=== PATIENT | female | born 1960 | race Caucasian/White ===

== ENCOUNTER 2019-05-14 12:24 | Emergency (ER) | payer MEDICAID ==
[~2019-05-14] VITALS: Ht 157.5 cm; Wt 72.6 kg
[~2019-05-14 12:24] MED LIST: DIAZ10 PO; GABA300 PO; IBUP600 PO; METH10 PO
[2019-05-14] MEDS ORDERED: HYDR1TAB94 PO (13:54)
[2019-05-14] MEDS ORDERED: IBUP800 PO (13:54)
== END 2019-05-14 14:46 | disposition home or self-care (01) ==
LOC: ER 12:24
DX: S62.314A Displaced fracture of base of fourth metacarpal bone, right hand, initial encounter for closed fracture (principal); S62.312A Displaced fracture of base of third metacarpal bone, right hand, initial encounter for closed fracture; S63.274A Dislocation of unspecified interphalangeal joint of right ring finger, initial encounter; W01.0XXA Fall on same level from slipping, tripping and stumbling without subsequent striking against object, initial encounter; Z88.8 Allergy status to other drugs, medicaments and biological substances; Z88.6 Allergy status to analgesic agent; Z79.899 Other long term (current) drug therapy; F17.210 Nicotine dependence, cigarettes, uncomplicated
CPT/HCPCS: 26770; 73110; 73130; 73140; 96372-59; 99283-25; J3010

== ENCOUNTER → 2019-07-04 | Outpatient (CLI) | payer SELFPAY ==
[~2019-07-04] MED LIST changes: +HYDR1TAB94 PO; +IBUP800 PO
== END | disposition home or self-care (01) ==
LOC: LAB 18:50 → LAB SHORT 18:50
DX: J02.9 Acute pharyngitis, unspecified (principal)
CPT/HCPCS: 87081

== ENCOUNTER → 2019-12-21 | Outpatient (CLI) | payer SELFPAY | LOC: LAB 17:57 → LAB SHORT 17:57 | DX: L08.9 Local infection of the skin and subcutaneous tissue, unspecified (principal) | CPT/HCPCS: 87070; 87205 ==

== ENCOUNTER → 2021-09-27 | Outpatient (CLI) | payer SELFPAY | LOC: PLD 11:37 → LAB SHORT 11:37 → LAB FUT 08-26 16:00 | DX: F45.8 Other somatoform disorders (principal) | CPT/HCPCS: 87177; 87209 ==

== ENCOUNTER 2025-01-12 17:17 | Emergency (ER) | payer OTHER ==
[~2025-01-12] VITALS: Ht 157.5 cm; Wt 63.5 kg
[2025-01-12 18:03] VITALS: BP 119/75
== END 2025-01-12 19:19 | disposition left against medical advice (07) ==
LOC: ER 17:17
DX: K62.89 Other specified diseases of anus and rectum (principal); K59.00 Constipation, unspecified; Z53.21 Procedure and treatment not carried out due to patient leaving prior to being seen by health care provider
CPT/HCPCS: 99281